=== PATIENT | female | born 1950 | race Caucasian/White ===

== ENCOUNTER 2023-10-01 08:10 | Day surgery (SDC) | payer MEDICARE ==
[~2023-10-01] VITALS: Ht 165.1 cm; Wt 89.9 kg
[2023-10-01 08:30] VITALS: BP 119/62; PULSE 56; RESP 16; TEMP 97.9; O2SAT 97
[2023-10-01] MEDS ORDERED: cefazolin 2gm/D5W 100mL 100 ML IV ONE (09:02)
[2023-10-01 09:44] LABS: BASOPHILS % (AUTO) 0.7 % (0-1); EOSINOPHILS # (AUTO) 0.1 X10'3 (0-0.9); EOSINOPHILS % (AUTO) 1.6 % (0-6); HEMATOCRIT 44.2 % (35.0-45.0); HEMOGLOBIN 14.8 g/dl (12.0-16.0); LYMPHOCYTES # (AUTO) 1.8 X10'3 (1.1-4.8); LYMPHOCYTES % (AUTO) 26.7 % (21-51); MEAN CORPUSCULAR HEMOGLOBIN 30.8 PG (27.0-31.0); MEAN CORPUSCULAR HGB CONC 33.4 g/dL (33.0-36.5); MEAN CORPUSCULAR VOLUME 92.2 FL (78-98); MEAN PLATELET VOLUME 7.7 FL (7.4-10.4); MONOCYTES # (AUTO) 0.4 X10'3 (0-0.9); MONOCYTES % (AUTO) 5.3 % (2-12); NEUTROPHILS # (AUTO) 4.4 X10'3 (1.8-7.7); NEUTROPHILS % (AUTO) 65.7 % (42-75); PLATELET COUNT 208 X10'3 (140-440); RED CELL DISTRIBUTION WIDTH 13.6 % (11.5-14.5); WHITE BLOOD COUNT 6.7 X10'3 (4.5-11.0)
[2023-10-01] MEDS: metoclopramide 5 mg/ml inj IV ONE (09:44)
[2023-10-01] MEDS: ringers solution, lacted 1,000 ML IV SCH (09:45)
[2023-10-01] MEDS ORDERED: clindamycin-Cleocin 900mg/D5W 50 ML IV ONE (09:45)
[2023-10-01] MEDS: famotidine 20mg tablet PO ONE (09:45)
[2023-10-01 10:06] LABS: ALANINE AMINOTRANSFERASE 31 U/L (12-78); ALBUMIN 3.5 G/DL (3.4-5.0); ALBUMIN/GLOBULIN RATIO 0.9 (1.1-1.5); ALKALINE PHOSPHATASE 71 IU/L (46-116); ANION GAP 8 (8-16); ASPARTATE AMINO TRANSFERASE 18 U/L (10-37); BILIRUBIN,TOTAL 0.5 MG/DL (0.1-1.0); BLOOD UREA NITROGEN 18 MG/DL (7-18); BUN/CREATININE RATIO 21.7 (10.0-20.0); CALCIUM 8.9 MG/DL (8.5-10.1); CHLORIDE 104 MMOL/L (99-107); CREATININE 0.83 MG/DL (0.40-0.90); GLUCOSE 91 MG/DL (70-104); SODIUM 139 MMOL/L (135-145); TOTAL CARBON DIOXIDE 27.2 MMOL/L (24-32); TOTAL PROTEIN 7.2 G/DL (6.4-8.2); eCRCL 55 ML/MIN; eGFR 68 ML/MIN
[2023-10-01] MEDS ORDERED: BUPIVAcaine/PF 2.5mg/ml (0.25%) 10ml vial ONE (10:22)
[2023-10-01] MEDS ORDERED: hydrALAZINE 20mg/ml inj. IV PRN (11:00)
[2023-10-01] MEDS ORDERED: morphine 4 MG/ML inj SYRINge IV PRN (11:00)
[2023-10-01] MEDS ORDERED: morphine 2 MG/ML inj. syringe IV PRN (11:00)
[2023-10-01] MEDS ORDERED: meperidine/PF 25mg/ml syringe IV PRN ×2 (11:00)
[2023-10-01] MEDS ORDERED: ondansetron/PF 4mg/2ml inj IV PRN (11:00)
[2023-10-01] MEDS ORDERED: acetaminophen 1,000mg/100ml IV 100 ML IV ONE (11:00)
[2023-10-01] MEDS ORDERED: proCHLORperazine 10 MG/2 ml inj IV PRN (11:00)
[2023-10-01] MEDS ORDERED: labetalol 20mg/4ml (5mg/ml) syringe IV PRN (11:00)
[2023-10-01] MEDS ORDERED: ringers solution, lacted 1,000 ML IV SCH (11:00)
[2023-10-01] MEDS ORDERED: midazolam 1 mg/ML 2ml injection ONE (11:13)
[2023-10-01] MEDS ORDERED: sevoflurane 250ml liquid IH ONE (11:15)
[2023-10-01] MEDS: BUPIVAcaine 2.5mg/ml inj 50ml vial (contains preservative) ONE (11:47)
[2023-10-01] MEDS: LIDOcaine 1% 30ml preserv. free vial ONE (11:48)
[2023-10-01] MEDS: BUPIVACAINE liposomal/PF 13.3 MG/ML vial IM ONE (11:48)
[2023-10-01] MEDS ORDERED: fentaNYL /PF 50mcg/ml 5ml ampule ONE (12:15)
[2023-10-01] MEDS ORDERED: rocuronium 10mg/ml inj IV ONE (12:24)
[2023-10-01] MEDS ORDERED: glycopyrrolate 0.2mg/ml inj ONE (12:24)
[2023-10-01] MEDS ORDERED: neostigmine methylsulfate 1 MG/ML 10ml vial ONE (12:24)
[2023-10-01] MEDS ORDERED: LIDOcaine 2% (20mg/ml) 5ml vial ONE (12:24)
[2023-10-01] MEDS ORDERED: dexamethasone sod phosphate 4mg/ml inj. ONE (12:24)
[2023-10-01] MEDS ORDERED: propofol inj 20 ML IV ONE (12:24)
[2023-10-01] MEDS ORDERED: ondansetron/PF 4mg/2ml inj ONE (12:24)
[2023-10-01 12:37] VITALS: BP 138/70; PULSE 83; RESP 16; O2SAT 98
[2023-10-01 12:50] VITALS: BP 128/72; PULSE 83; RESP 15; O2SAT 94
[2023-10-01 13:00] VITALS: BP 119/74; PULSE 67; RESP 10; O2SAT 91
[2023-10-01] MEDS: meperidine/PF 25mg/ml syringe IV PRN (13:00)
[2023-10-01 13:45] VITALS: RESP 14
[2023-10-01] MEDS: oxyCODONE/APAP 5-325mg tablet PO PRN (13:45)
== END 2023-10-01 13:57 | disposition home or self-care (01) ==
LOC: PAS 08:10
PROVIDERS: ATTEND Surgery
DX: K42.9 Umbilical hernia without obstruction or gangrene (principal); I45.10 Unspecified right bundle-branch block; J44.9 Chronic obstructive pulmonary disease, unspecified; Z90.89 Acquired absence of other organs; Z98.51 Tubal ligation status; Z98.890 Other specified postprocedural states; Z88.0 Allergy status to penicillin; Z88.2 Allergy status to sulfonamides; Z88.8 Allergy status to other drugs, medicaments and biological substances
CPT/HCPCS: 36415; 49591; 64488; 80053; 82948; 85025; 93005; A4215; A4618; C1781; C9290; J1100; J2001; J2175; J2250; J2405; J2704; J2710; J2765; J3010; J3490; J7030; J7120; Z7506; Z7508; Z7512; Z7610